=== PATIENT | female | born 1995 | race Caucasian/White ===

== ENCOUNTER 2020-10-15 14:08 | Emergency (ER) | payer OTHER ==
[2020-10-15] MEDS ORDERED: Ketorolac Tromethamine 30 MG/ML VIAL ONE (15:01)
[2020-10-15] MEDS ORDERED: Diazepam 5 MG TAB ONE (15:01)
== END 2020-10-15 15:20 | disposition home or self-care (01) ==
LOC: ERS 14:08
DX: M53.3 Sacrococcygeal disorders, not elsewhere classified (principal); M19.90 Unspecified osteoarthritis, unspecified site; Z79.899 Other long term (current) drug therapy; X50.1XXA Overexertion from prolonged static or awkward postures, initial encounter
CPT/HCPCS: 96372; 99283; J1885

== ENCOUNTER 2021-11-01 10:01 | Outpatient (CLI) | payer OTHER | END 2021-11-01 10:02 | disposition home or self-care (01) | LOC: BICULT 10:01 | PROVIDERS: ATTEND Nurse Practitioner Women's Health | DX: N63.15 Unspecified lump in the right breast, overlapping quadrants (principal); M54.42 Lumbago with sciatica, left side | CPT/HCPCS: 72100 ==

== ENCOUNTER 2022-06-05 14:49 | Outpatient (CLI) | payer OTHER | END 2022-06-05 14:50 | disposition home or self-care (01) | LOC: BICULT 14:49 | PROVIDERS: ATTEND Nurse Practitioner Family | DX: D24.1 Benign neoplasm of right breast (principal) ==